=== PATIENT | male | born 1985 | race African-American/Black ===

== ENCOUNTER 2016-04-21 23:51 | Emergency (ER) | payer OTHER ==
[~2016-04-21] VITALS: Ht 177.8 cm; Wt 59.9 kg
--- NOTE | ~2016-04-21 | EKG ---
[place] [address] [address] [facility] [place] [address] ELECTROCARDIOGRAM REPORT Name: DIANNE MCKINNEY Room #: DEP MARIA G Marrero#: [id number] Admission: 04/21/16 Attend Phys: Discharge: 04/22/16 Date of : 89 Report #: [id number] THIS REPORT FOR: //name// [facility] ED Test Date: 2016-04-21 Test Time: 23:58:36 Pat Name: DIANNE MCKINNEY Department: Room: Gender: [employer] Master: CHLOE : 1985 Requested By: Sarahi De La Torre Order Number: [id number] MD: Behzad Stapleton Measurements Intervals Matthews Rate: 84 P: 56 ME: 135 QRS: 80 QRSD: 91 T: 66 QT: 372 QTc: 440 Interpretive Statements Sinus rhythm No significant abnormality No previous ECG available for comparison Electronically Signed On 04-22-2016 9:33:41 [employer] by Behzad Stapleton [email or web address] <ELECTRONICALLY SIGNED> By: Behzad Stapleton MD, [facility] 04/22/16 [id number] Behzad Stapleton MD, FACC /EPI
[2016-04-22 02:11] VITALS: BP 115/93
[2016-04-22 02:38] LABS: ABSOLUTE NEUTROPHILS 2.9 thou/uL (1.4-8.2); BASOPHILS 1.2 % (0.0-2.0); EOSINOPHILS 7.3 % (0.0-3.0); HEMOGLOBIN 12.4 gm/dL (14.0-18.0); LYMPHOCYTES 30.4 % (24.0-44.0); MANUAL DIFF NO; MCH 27.7 pg (26.0-34.0); MCHC 32.8 % (28.0-37.0); MCV 84.6 fL (80.0-100.0); PLATELET COUNT 270 thou/uL (150-400); POLYS 51.1 % (36.0-66.0); RBC 4.49 mil/uL (4.50-6.00); RDW 14.8 % (10.5-14.5); WBC 5.6 thou/uL (4.0-11.0)
[2016-04-22 03:01] LABS: ANION GAP 9 mmol/L (7-16); BUN 17 mg/dL (7-18); CALCIUM 8.5 mg/dL (8.5-10.1); CHLORIDE 105 mmol/L (98-107); CO2 26 mmol/L (21-32); CREATININE 1.1 mg/dL (0.6-1.3); GLUCOSE 82 mg/dL (70-99); POTASSIUM 4.2 mmol/L (3.5-5.1); SODIUM 140 mmol/L (136-145)
[2016-04-22 03:40] LABS: ALBUMIN 3.4 g/dL (3.4-5.0); ALKALINE PHOSPHATASE 111 U/L (46-116); NT-PRO BRAIN NAT PEPTIDE 29 pg/mL (<300); SGOT 31 U/L (15-37); SGPT 35 U/L (30-65); TOTAL BILIRUBIN 0.2 mg/dL (<0.1-1.0); TROPONIN-I < 0.04 ng/mL (<0.04-0.07)
[2016-04-22 04:48] LABS: AMP/METHAMP POSITIVE (Negative); BARBITURATES Negative (Negative); BENZODIAZEPINES Negative (Negative); COCAINE Negative (Negative); METHADONE Negative (Negative); OPIATES Negative (Negative); PCP Negative (Negative); THC POSITIVE (Negative)
[2016-04-22] MEDS ORDERED: AMOXICILLIN875 MG PO (05:16)
== END 2016-04-22 05:56 | disposition home or self-care (01) ==
LOC: ER 23:51
PROVIDERS: Emergency Medicine
DX: R07.89 Other chest pain (principal); K08.89 Other specified disorders of teeth and supporting structures; Z21 Asymptomatic human immunodeficiency virus [HIV] infection status; J45.909 Unspecified asthma, uncomplicated; Z88.6 Allergy status to analgesic agent; Z88.2 Allergy status to sulfonamides; F10.99 Alcohol use, unspecified with unspecified alcohol-induced disorder